=== PATIENT | male | born 1945 | race Caucasian/White ===

== ENCOUNTER → 2019-12-14 | Outpatient (CLI) | payer OTHER ==
--- NOTE | 2019-12-14 13:35 | RADIOLOGY REPORT (SQ) ---
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 TECHNIQUE: Realtime and static grayscale images acquired. Selected color Doppler, velocities and spe ctral images recorded. LIMITATIONS: None. FINDINGS: RIGHT KIDNEY: RENAL ARTERY VELOCITIES: 109 cm/sec at the origin, 114.9 cm/sec at the midportion of the artery, and 93.5 cm/sec at the hilum. The segmental artery PSV = 48.9 cm/sec. RENAL VEIN: Patent. VELOCITY RATIO: 1.3. Normal waveforms. KIDNEY: The right kidney measures 11.1 cm in length. There is no hydronephrosis. LEFT KIDNEY: RENAL ARTERY VELOCITIES: 134.1 cm/sec at the origin, 107.2 cm/sec at the midportion of the artery, a nd 92.1 cm/sec at the hilum. The segmental artery PSV = 43.7 cm/sec. RENAL VEIN: Patent. VELOCITY RATIO: 1.6. Normal waveforms. KIDNEY: The left kidney measures 10.8 cm in length. There is no hydronephrosis. BLADDER: Normal. OTHER: No other finding. IMPRESSION: No Doppler evidence of renal artery stenosis. COMMENT: NORMAL RENAL ARTERY/AORTA VELOCITY RATIO IS LESS THAN OR EQUAL TO 3.5. TECHNICAL DOCUMENTATION: JOB ID: [id number] 2010 [employer]- All Rights Reserved Reading location - IP/workstation name: [email or web address]
== END ==
LOC: RAD 09:46
PROVIDERS: ATTEND Physician Assistant Medical
DX: I12.9 Hypertensive chronic kidney disease with stage 1 through stage 4 chronic kidney disease, or unspecified chronic kidney disease (principal); N18.3 Chronic kidney disease, stage 3 (moderate)
CPT/HCPCS: 93975